=== PATIENT | male | born 1990 | race Two or more races ===

== ENCOUNTER 2022-01-02 14:18 | Emergency (ER) | payer MEDICAID, SELFPAY ==
--- NOTE | ~2022-01-02 | XR_ITS ---
EXAMINATION: XR SHOULDER, RIGHT CLINICAL INFORMATION: Fall COMPARISON: None TECHNIQUE: Three views of the right shoulder. FINDINGS: There is a minimally displaced humeral greater tuberosity fracture. No other fracture is seen. Joint spaces are normal. Soft tissues are normal. XR/XR shoulder RT min 2V IMPRESSION: Greater tuberosity fracture.
[2022-01-02 15:40] VITALS: BP 166/104; PULSE 111; RESP 18; TEMP 36.8; O2SAT 95; BMI 32.3
--- NOTE | 2022-01-02 15:52 | ED_ITS ---
HPI - Fall General Chief Complaint: Fall Stated Complaint: dislocated shoulder Time Seen by Provider: 01/02/22 15:52 Source: patient Mode of arrival: ambulatory Limitations: no limitations History of Present Illness HPI Narrative: Patient is a 31 year old male presenting to the emergency department today with right shoulder pain. Patient states that he is a daily drinker and last night, he tripped and fell, landing on his right shoulder. Patient states that he was drunk when the incident happened but he did not hit his head or have any loss of consciousness with the incident. Patient describes the pain as dull, constant, non-radiating, and a 4/10. Patient denies any dizziness, lightheadedness, abdominal pain, nausea, vomiting, fever, chills, blurry vision, double vision, loss of vision, chest pain, difficulty breathing, shortness of breath, back pain, night sweats, pain with urination, increased urinary frequency, increased urinary urgency, blood in his urine or stool, syncope or a near syncopal episode, bowel incontinence, bladder incontinence, bowel retention, bladder retention, or any other complaints at this time. MD complaint: fall Onset (ago): day(s) (1) Fall from: standing Fall witnessed: no Place fall occurred: home Loss of consciousness: none Prolonged down time: no Symptoms prior to fall: none Context: tripped/slipped and alcohol use Location of injury: other (right shoulder) Severity: mild Severity scale (1-10): 4 Quality: dull Associated symptoms (after fall): denies Related Data Allergies Allergy/AdvReac Type Severity Reaction Status Date / Time No Known Allergies Allergy Verified 01/02/22 15:39 Review of Systems Constitutional: Constitutional: Reports no additional constitutional complaints, Denies chills, Denies fever(s) and Denies night sweats Eyes: Eyes: Reports no additional eye complaints, Denies blurry vision, Denies change in vision, Denies diplopia, Denies eye discharge, Denies loss of vision and Denies eye pain ENT: Denies dizziness Cardiovascular: Cardiovascular: Reports no additional cardiovascular complaints, Denies chest pain, Denies lightheadedness, Denies Loss of Consciousness and Denies dyspnea Respiratory: Respiratory: Reports no additional respiratory complaints and Denies dyspnea Gastrointestinal: Gastrointestinal: Reports no additional gastrointestinal complaints, Denies abdominal pain, Denies melena, Denies hematochezia, Denies change in bowel habits and Denies change in stool character Genitourinary: Genitourinary: Reports no additional male genitourinary complaints, Denies hematuria, Denies oliguria, Denies difficulty urinating, Denies dysuria, Denies urinary frequency, Denies urinary hesitancy, Denies urinary incontinence and Denies urinary urgency Musculoskeletal: Musculoskeletal: Reports no additional musculoskeletal complaints, Denies numbness and Denies tingling Comments: right shoulder pain Neurologic: Denies dizziness, Denies loss of vision, Denies numbness and Denies tingling Psychiatric: Psychiatric: Reports no additional psychiatric complaints Endocrine: Endocrine: Reports no additional endocrine complaints Hematologic/Lymphatic: Hematologic/Lymphatic: Reports no additional hematologic/lymphatic complaints Allergic/Immunologic: Allergic/Immunologic: Reports no additional allergic/immunologic complaints PMFSH Past Medical History Attestation statement: The following information was validated with the patient. Source: old records reviewed Social History Social History Advance Directives: No Advance Directives Information Provided: No Physical Exam Vital Signs: Vital Signs: Last Vital Signs Temp 98.3 F 01/02/22 15:40 Pulse 111 H 01/02/22 15:40 Resp 18 01/02/22 15:40 BP 166/104 H 01/02/22 15:40 Pulse Ox 95 01/02/22 15:40 BMI result Body Mass Index 32.3 Const: General: cooperative, no acute distress, alert and awake Nutritional Appearance: well nourished Orientation/consciousness: patient oriented x3 Limitations: no limitations HENMT: Head: Yes normal to inspection and Yes atraumatic Ears: hearing grossly normal bilaterally and external ears normal General nose exam: Normal external nose present, no nasal discharge noted and no epistaxis Face and sinus: Yes normal facial exam, No abrasion and No laceration Mouth: Normal oral and palatal mucosa present, no drooling and no muffled voice Eyes: General: appearance normal, both eyes and all related structures Periorbital: periorbital findings normal Eyelids: Yes eyelids normal Conjunctivae: conjunctivae normal Pupils: Equal, round and reactive pupils present EOM: EOMs intact bilaterally Neck: Neck: Yes normal visual inspection, Yes full ROM and Yes no lymphadenopathy Chest: Chest palpation & inspection: normal inspection of the chest Resp: Effort & Inspection: normal respiratory effort and able to speak in complete sentences Auscultation: clear to auscultation bilaterally Cardio: Rate: regular rate Rhythm: regular rhythm GI: Inspection: Yes normal to inspection Neuro: General: patient oriented x3 and moves all extremities Cranial nerves: Yes Equal, round and reactive pupils present Cognition (Neuro): normal cognition Motor exam (neuro): 5/5 motor strength present throughout Sensory Exam: Normal double simultaneous stimulation for sensation Coordination: [id number] test normal Extrem: Other: tenderness to palpation of the right upper humerus General: Yes normal to inspection, Yes full ROM and Yes capillary refill normal Psych: Appearance: grossly normal Mental Status: mental status grossly normal Affect: normal affect Attitude: cooperative Thought process: Normal thought process present Thought content: Normal thought content present Insight: Good insight present (Psych) Procedures Orthopedic Splinting/Casting Injury #1: Side: right Upper Extremity Injury Location: shoulder Upper Extremity Immobilizer: sling/shoulder immobilizer MDM - Fall MDM Narrative Medical decision making narrative: Patient is a 31 year old male presenting to the emergency department today with right shoulder pain. Patient's physical exam showed tenderness to palpation of the right upper arm but was otherwise unremarkable. Patient's PMS and ROM was intact to the right upper extremity. Patient's right shoulder x-ray showed an acute greater tuberosity fracture of the right humerus. I explained my physical exam findings as well as all test results to the patient. I answered all questions asked by the patient. I spoke to Amira Key the orthopedic PA, who agreed that the patient should be placed in a sling and discharged for out patient follow up. Additionally, patient was given 2mg of Ativan, PO while in the department today. He had expressed that he normally doesn't go this long without alcohol and was starting to feel a bit shakey. This was consistent with his elevated HR. Patient declined wanting any help/resources/alcohol treatment. Patient was placed in a sling, without incident. Patient's PMS was intact prior to and after sling placement. I stressed the importance of the patient taking his medication as prescribed. I stressed the importance of the patient following up with his primary care provider and an orthopedic provider. I stressed the importance of the patient returning to the emergency department immediately if his symptoms were to worsen or if he were to develop any dizziness, shortness of breath, difficulty breathing, chest pain, blurry vision, loss of vision, nausea, vomiting, abdominal pain, fever, chills, back pain, or any other complaints. Patient verbalized agreement and understanding with this treatment plan and discharge. Differential Diagnosis Differential diagnosis: Likely dislocation and fracture Medical Records Attestation: I reviewed the patient's medical records. Lab Data Attestation: I reviewed the patient's lab results. Imaging Data Right shoulder x-ray: Attestation: I personally reviewed and interpreted this imaging study as follows: Radiologist's impression: EXAMINATION: XR SHOULDER, RIGHT CLINICAL INFORMATION: Fall? COMPARISON: None? TECHNIQUE: Three views of the right shoulder. FINDINGS: There is a minimally displaced humeral greater tuberosity fracture. No other fracture is seen. Joint spaces are normal. Soft tissues are normal. XR/XR shoulder RT min 2V IMPRESSION: Greater tuberosity fracture. Dictated By: Cecile Carrizales MD Signed By: Electronically signed by Cecile Carrizales MD 01/02/22 1547 Discharge Plan Discharge Clinical Impression: Fracture of humerus, Alcohol abuse Patient Disposition: Home, Self-Care Instructions: Arm Fracture in Adults (ED), How to Use a Sling (ED) Additional Instructions: Call to schedule a follow up appointment with an Orthopedic provider. Follow up with your primary care provider. Return to the emergency department immediately if your symptoms worsen or if you develop any dizziness, shortness of breath, difficulty breathing, chest pain, blurry vision, loss of vision, nausea, vomiting, abdominal pain, fever, chills, back pain, or any other complaints. Referrals: Geronimo Phelps MD [Physician] - 2 days [facility] [Primary Care Provider] - 2 days Interventions: ED Discharge Assessment Last Done: 01/02/22 16:28 Discharge Date/Time: 01/02/22 16:29 Print Language: Thai
[2022-01-02] MEDS: LORazepam 1 MG TABLET 2 MG PO (16:00)
== END 2022-01-02 16:29 | disposition home or self-care (01) ==
PROVIDERS: Emergency Provider Emergency Medicine
DX: S42.251A Displaced fracture of greater tuberosity of right humerus, initial encounter for closed fracture (principal); W01.10XA Fall on same level from slipping, tripping and stumbling with subsequent striking against unspecified object, initial encounter; F10.10 Alcohol abuse, uncomplicated; Y90.9 Presence of alcohol in blood, level not specified; Y93.9 Activity, unspecified; Y92.019 Unspecified place in single-family (private) house as the place of occurrence of the external cause; Y99.9 Unspecified external cause status
CPT/HCPCS: 73030; 99283; 99284

== ENCOUNTER → 2022-01-12 08:30 | Outpatient (BNVA) | payer MEDICAID, SELFPAY | PROVIDERS: Visit Provider Physician Assistant | DX: S42.251D Displaced fracture of greater tuberosity of right humerus, subsequent encounter for fracture with routine healing (principal) | CPT/HCPCS: 99202 ==

== ENCOUNTER 2022-02-15 08:59 | Outpatient (REF) | payer MEDICAID, SELFPAY ==
--- NOTE | ~2022-02-15 | XR_ITS ---
EXAMINATION: XR SHOULDER, RIGHT CLINICAL INFORMATION: Right shoulder pain COMPARISON: 01/02/2022 TECHNIQUE: Three views of the right shoulder. FINDINGS: There is redemonstration of a fracture of the right humeral greater tuberosity. Mild displacement of the fragment. This is similar to prior. No additional fractures. The glenohumeral joint is aligned. The joint space is maintained. The acromioclavicular joint is intact. XR/XR shoulder RT min 2V IMPRESSION: Similar appearance of the fracture at the right humeral greater tuberosity.
== END 2022-02-15 09:00 | disposition home or self-care (01) ==
LOC: HO.HOSX 08:59
PROVIDERS: Visit Provider Physician Assistant
DX: S42.253D Displaced fracture of greater tuberosity of unspecified humerus, subsequent encounter for fracture with routine healing (principal)
CPT/HCPCS: 73030; 99212

== ENCOUNTER 2022-03-29 07:28 | Outpatient (REF) | payer MEDICAID, SELFPAY ==
--- NOTE | ~2022-03-29 | XR_ITS ---
EXAMINATION: XR SHOULDER, RIGHT CLINICAL INFORMATION: Pain in the right shoulder COMPARISON: 02/15/2022 TECHNIQUE: Three views of the right shoulder. FINDINGS: Redemonstration of the fracture at the humeral greater tuberosity. Persistent fragmentation although there is less of an ossific gap when compared to prior. The glenohumeral joint is well aligned. The acromioclavicular joint is intact. The visualized lung is clear. The visualized ribs are intact. XR/XR shoulder RT min 2V IMPRESSION: Redemonstration of the greater tuberosity fracture with decreased ossific gap.
== END 2022-03-29 07:29 | disposition home or self-care (01) ==
LOC: HO.HOSX 07:28
PROVIDERS: Visit Provider Physician Assistant
DX: M25.511 Pain in right shoulder (principal)
CPT/HCPCS: 73030

== ENCOUNTER 2022-05-30 07:47 | Outpatient (REF) | payer MEDICAID, SELFPAY | END 2022-05-30 07:48 | disposition home or self-care (01) | LOC: HO.HOSX 07:47 | PROVIDERS: Visit Provider Physician Assistant | DX: Z13.89 Encounter for screening for other disorder (principal) ==

== ENCOUNTER 2023-03-24 14:13 | Emergency (ER) | payer MEDICAID, SELFPAY ==
--- NOTE | ~2023-03-24 | XR_ITS ---
EXAMINATION: XR FOOT, RIGHT CLINICAL INFORMATION: Glass laceration to dorsal surface of foot COMPARISON: None available. TECHNIQUE: AP, lateral, and oblique views of the right foot. FINDINGS: There is soft tissue swelling overlying the forefoot and midfoot. Overlying bandage material is noted. I do not appreciate any radiopaque foreign body or soft tissue gas. No acute bony abnormality. XR/XR foot RT 2V IMPRESSION: Soft tissue swelling with overlying bandage material. No radiopaque foreign body or soft tissue gas.
[2023-03-24 14:21] VITALS: BP 161/100; PULSE 93; RESP 18; TEMP 36.8; O2SAT 100; BMI 33.6
--- NOTE | 2023-03-24 14:42 | ED.WOUNDLAC ---
HPI - Wound/Laceration General Chief Complaint: Wound/Laceration Stated Complaint: R foot lac Time Seen by Provider: 03/24/23 14:29 Source: patient, RN notes reviewed and old records reviewed Mode of arrival: ambulatory History of Present Illness HPI narrative: 32-year-old male with no significant past medical history presenting to the ED complaining of laceration to right foot S/P cutting on glass around 04:00AM. Admits broke a glass vase, then was sitting on carpet, slid foot and was cut on glass that was in carpet. Denies suspected foreign body. Tetanus unknown/out of date. Denies numbness, tingling, injury to other area. Onset (ago): hour(s) Related Data Previous Rx's Medication Instructions Recorded acetaminophen 500 mg tablet 500 mg PO Q6H PRN fever or pain 03/24/23 (Tylenol Extra Strength) #14 tabs bacitracin 500 unit/gram topical 1 appl topical BID #30 grams 03/24/23 ointment naproxen 500 mg tablet 500 mg PO BID PRN pain 10 days #20 03/24/23 tabs Allergies Allergy/AdvReac Type Severity Reaction Status Date / Time No Known Allergies Allergy Verified 03/24/23 14:21 Review of Systems Review of Systems: Constitutional: No Fever, No Chills ENT/Mouth: No Ear Pain, No Nasal Congestion, No sore throat, No Rhinorrhea, No Swallowing Difficulty Cardiovascular: No Chest Pain, No SOB Respiratory: No Cough Gastrointestinal: No Nausea, No Vomiting, No Diarrhea, No Constipation, No Abdominal pain Genitourinary: No Dysuria, No Urinary Frequency, No Flank Pain Musculoskeletal: No joint pain, No Myalgias, No Joint Swelling Skin: +Skin Lesions, No rash Neuro: No Weakness Yes all other systems are reviewed and are negative Constitutional: Constitutional: Reports as per [facility] Past Medical History Attestation statement: The following information was validated with the patient. Source: old records reviewed Social History Social History Advance Directives: No Advance Directives Information Provided: No Current occupational status: employed Current occupation: [employer] Physical Exam Vital Signs: Vital Signs: Last Vital Signs Temp 98.3 F 03/24/23 14:21 Pulse 93 03/24/23 14:21 Resp 18 03/24/23 14:21 BP 161/100 H 03/24/23 14:21 Pulse Ox 100 03/24/23 14:21 O2 Del Method Room Air 03/24/23 14:21 BMI result Body Mass Index 33.6 Const: General: cooperative, healthy appearing and no acute distress Orientation/consciousness: patient oriented x3 Limitations: no limitations HEENT: Head: Yes normal to inspection and Yes atraumatic Ears: hearing grossly normal bilaterally General nose exam: Normal external nose present Face and sinus: Yes normal facial exam Eyes: General: appearance normal, both eyes and all related structures EOM: EOMs intact bilaterally Neck: Neck: Yes normal visual inspection and Yes no meningeal signs Resp: Effort & Inspection: normal respiratory effort and no respiratory distress Cardio: Rate: regular rate Peripheral pulses: popliteal pulses present Skin: Other: +3.5 cm superficial laceration noted to volar lateral aspect of right foot. Bleeding controlled. Underlying structures intact. NV intact. No surrounding erythema or ecchymosis Rashes: no rashes Neuro: General: patient oriented x3, tone normal and no meningeal signs Gait exam (Neuro): Normal gait present Extrem: General: Yes normal to inspection Course Course Course Narrative: XR foot RT 2V IMPRESSION: Soft tissue swelling with overlying bandage material. No radiopaque foreign body or soft tissue gas. ? Results discussed with patient including worrisome signs and symptoms and strict return precautions, and when to return to the emergency department. They verbalized understanding and feel safe for discharge at this time. Medications Administered Discontinued Medications Generic Name Dose Route Start Last Admin Trade Name Freq PRN Reason Stop Dose Admin Diphtheria/Tetanus/Acell Pertussis 0.5 ml 03/24/23 14:55 03/24/23 15:00 Diphth,Pertus(Acell),Tet Adult 0.5 Ml Syringe IM 03/24/23 14:56 0.5 ml .ONCE ONE Administration Lidocaine HCl 5 ml 03/24/23 14:55 03/24/23 15:00 Lidocaine Hcl 1 % Mpf 5 Ml Vial INFILTRATI 03/24/23 14:56 5 ml ONCE ONE Administration Medical Decision Making Medical Decision Making MDM Narrative: 32-year-old male with no significant past medical history presenting to the ED complaining of laceration to right foot S/P cutting on glass around 04:00AM. On exam vital signs stable, NAD, nontoxic appearing, physical exam as above with 3.5 cm superficial laceration noted to top of right foot lateral aspect. Underlying structures intact. No surrounding cellulitis/drainage. Neurovascularly intact Plan: X-ray to rule out foreign body, update tetanus, repair wound Please refer to course for remaining clinical decision making, interpretation of labs/imaging results, and discussions with consultants and/or family members. Differential Diagnosis Differential Diagnoses: The differential diagnosis associated with the presentation includes As above Radiology Impression Discussion of test interpretation with radiology: I have reviewed the radiologist's reading. External Record Review External record reviewed: Inpatient record, Office record, Outpatient record, Prior outpatient labs, Prior outpatient radiology, Primary care record and Outside ED record Tests considered The following testing was considered but not selected: As above Procedures Laceration Laceration 1: Site: lower extremity Side (If applicable): right Size (cm): 3.5 Description: linear Depth: simple, single layer Local Anesthetic: lidocaine 1% Amount of anesthesia used (mL): 3 Pre-repair: wound explored and irrigated extensively Skin layer closed with: nylon Size (cm): 4-0 Technique: simple, interrupted Discharge Plan Discharge Clinical Impression: Foot laceration Patient Disposition: Home, Self-Care Instructions: Laceration (DC) Additional Instructions: Your wounds were repaired today in the emergency department. Keep dry and clean. You need to return to any emergency department, urgent care, or your PCPs office in 7-10 days for suture removal Apply bacitracin and or Neosporin daily Once sutures are removed apply anti scar cream like Mederma If area begins look infected, is red, there is drainage, streaking, or you have fever please return to the emergency department Prescriptions: New bacitracin 500 unit/gram ointment 1 appl topical BID Qty: 30 0RF acetaminophen [Tylenol Extra Strength] 500 mg tablet 500 mg PO Q6H PRN (Reason: fever or pain) Qty: 14 0RF naproxen 500 mg tablet 500 mg PO BID PRN (Reason: pain) 10 Days Qty: 20 0RF Referrals: Physician,None [Primary Care Provider] - 1 week (for suture removal) Stand Alone Forms: Work/School Release Interventions: ED Discharge Assessment Last Done: 03/24/23 15:58 Discharge Date/Time: 03/24/23 15:58
[2023-03-24] MEDS: Lidocaine HCl 1 % MPF 5 ML VIAL INFILTRATI (15:00)
[2023-03-24] MEDS: Diphth,Pertus(ACell),Tet Adult 0.5 ML SYRINGE IM (15:00)
--- NOTE | 2023-03-24 15:01 | PC.NURSE ---
pt medicated per DEC, carlous updated in l deltoid
--- NOTE | 2023-03-24 15:53 | PC.NURSE ---
APPLIED BACITRACIN TO DORSAL ASPECT OF FOOT AT SUTURE SITE, FOLLOWED BY NONSTICK DRESSING KERLIX AND TAQPE, WELL TOLERATED BY PT WHO STS HIS FOOT IS STILL NUMB FROM PROCEDURE, CSM IN TACT
== END 2023-03-24 15:58 | disposition home or self-care (01) ==
PROVIDERS: Emergency Provider Internal Medicine
DX: S91.311A Laceration without foreign body, right foot, initial encounter (principal); S90.811A Abrasion, right foot, initial encounter; W25.XXXA Contact with sharp glass, initial encounter; Y93.9 Activity, unspecified; Y92.9 Unspecified place or not applicable; Y99.9 Unspecified external cause status; Z23 Encounter for immunization
CPT/HCPCS: 73620; 90471; 90715; 99282; 99284

== ENCOUNTER 2023-12-26 17:53 | Emergency (ER) | payer MEDICAID, SELFPAY ==
--- NOTE | ~2023-12-26 | XR_ITS ---
EXAMINATION: XR CLAVICLE, LEFT CLINICAL INFORMATION: Fall. Pain. COMPARISON: None available. TECHNIQUE: 2 radiographs of the left clavicle. FINDINGS: The clavicle is intact. The bones and soft tissues are normal. No fracture. Acromioclavicular joint alignment is anatomic. XR/XR clavicle LT IMPRESSION: Normal left clavicle.
[2023-12-26 18:28] VITALS: BP 188/113; PULSE 73; RESP 20; TEMP 37.3; O2SAT 99; BMI 32.8
--- NOTE | 2023-12-26 19:36 | ED_ITS ---
HPI - Extremity Problem General Chief complaint: Extremity Injury, Upper Stated complaint: broken L clavicle Time Seen by Provider: 12/26/23 19:35 Source: patient Mode of arrival: ambulatory Limitations: no limitations History of Present Illness HPI Narrative: Patient is a 33-year-old male presenting to the emergency department with complaint bruising and tenderness to left anterior shoulder/clavicle. 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 States he is since developed the bruising and tenderness. Denies any decreased range of motion to left shoulder or arm. Denies any new weakness, numbness, tingling. Denies any difficulty breathing or shortness of breath. MD Complaint: extremity pain Onset (ago): day(s) Pain Consistency: constant Location: left Quality: aching Radiation: none Relieving factors: rest Exacerbating factors: palpation Associated symptoms: denies other symptoms Related Data Previous Rx's Medication Instructions Recorded acetaminophen 500 mg tablet 500 mg PO Q6H PRN fever or pain 03/24/23 (Tylenol Extra Strength) #14 tabs bacitracin 500 unit/gram topical 1 appl topical BID #30 grams 03/24/23 ointment naproxen 500 mg tablet 500 mg PO BID PRN pain 10 days #20 03/24/23 tabs Allergies Allergy/AdvReac Type Severity Reaction Status Date / Time No Known Allergies Allergy Verified 03/24/23 14:21 Review of Systems 2 Review of Systems: As per HPI. Yes all other systems are reviewed and are negative Constitutional: Constitutional: Reports as per HPI [facility] Social History Social History Current occupational status: employed Current occupation: [employer] [place] Physical Exam 2 Vital Signs: Vital Signs: Last Vital Signs Temp 99.2 F 12/26/23 18:28 Pulse 73 12/26/23 18:28 Resp 20 12/26/23 18:28 BP 188/113 H 12/26/23 18:28 Pulse Ox 99 12/26/23 18:28 O2 Del Method Room Air 12/26/23 18:28 BMI result Body Mass Index 32.8 Vital signs have been reviewed and appear to be correct. Blood pressure elevated. Heart rate normal. Respiratory rate normal. Temperature normal. Oxygen saturation normal. Const: General: cooperative, healthy appearing and no acute distress O rientation/consciousness: oriented to person, oriented to place, oriented to time and patient oriented x3 Limitations: no limitations HEENT: Head: Yes normocephalic and Yes atraumatic Ears: external ears normal General nose exam: Normal external nose present Face and sinus: Yes face symmetric Mouth: oropharynx normal and moist mucous membranes Throat: Yes uvula midline Eyes: Pupils: Equal, round and reactive pupils present Neck: Neck: Yes normal visual inspection and Yes supple Resp: Effort & Inspection: normal respiratory effort and able to speak in complete sentences Auscultation: clear to auscultation bilaterally Cardio: Rate: regular rate Rhythm: regular rhythm Heart sounds: S1 normal heart sound present and S2 normal heart sound present GI: Palpation (GI): Soft to palpation and nontender Auscultation: n ormoactive bowel sounds : General: Yes no CVA tenderness Back/Spine/Pelvis: Back: no CVA tenderness Skin: General skin exam: elasticity normal and turgor normal Neuro: General: oriented to person, oriented to place, oriented to time, patient oriented x3, moves all extremities, no focal motor deficits and CN's II- XI intact bilaterally Cranial nerves: Yes Equal, round and reactive pupils present Cognition (Neuro): normal cognition Extrem: General: Yes full ROM, Yes normal exam except as noted, Yes no pedal edema and Yes no calf tenderness Left upper extremity: shoulder/upper arm Details: tenderness Location: of the A-C joint, axillary nerve sensory function normal, normal ROM and ecchymosis shoulder anterior Shoulder/upper arm images: 1. healing ecchymosis, tenderness Psych: Mental Status: mental status grossly normal Affect: normal affect Thought process: Normal thought process present Medical Decision Making Medical Decision Making MDM Narrative: Patient is a 33-year-old male presenting to the emergency department with complaint bruising and tenderness to left anterior shoulder/clavicle. On exam patient is awake, A+Ox3, VS WNL, afebrile, normal neurological exam without focal deficits, physical exam findings as above. Given reported symptoms and physical exam findings, initial differential includes left shoulder/clavicle contusion versus fracture. Do not suspect dislocation. X-ray notable for no acute fracture. My interpretation is in agreement with the radiologist's interpretation. Patient updated on results and all questions answered. Advised patient to apply ice for 10-15 minutes at a time several times daily, Tylenol and ibuprofen for discomfort. Return precautions discussed. Patient verbalized understanding of and agreement with plan. Differential Diagnosis Differential Diagnoses: The differential diagnosis associated with the presentation includes As per MDM. Independent Interpretation I performed an independent interpretation of an: Plain X-Ray Interpretation: No acute fracture left clavicle. Radiology Impression Discussion of test interpretation with radiology: I have reviewed the radiologist's reading. Radiologist Impression: XR/XR clavicle LT IMPRESSION: Normal left clavicle. External Record Review External record reviewed: Inpatient record, Office record and Outpatient record Discharge Plan Discharge Clinical Impression: Contusion of left shoulder Patient Disposition: Home, Self-Care Instructions: Contusion in Adults (ED) Additional Instructions: You were evaluated in the emergency department today for left shoulder pain. Your x-ray did not show any evidence of fracture. You discomfort is likely due to a contusion, also known as a bruise. You can apply ice to the area for 10-15 minutes at time, you can also take 650mg Tylenol or 600mg ibuprofen every 6 hours as needed for discomfort. Return to the emergency department if you develop increasing pain, difficulty breathing, new weakness, numbness, tingling, or any other concerning symptoms. Prescriptions: No Action bacitracin 500 unit/gram ointment 1 appl topical BID Qty: 30 0RF acetaminophen [Tylenol Extra Strength] 500 mg tablet 500 mg PO Q6H PRN (Reason: fever or pain) Qty: 14 0RF naproxen 500 mg tablet 500 mg PO BID PRN (Reason: pain) 10 Days Qty: 20 0RF
--- NOTE | 2023-12-26 19:38 | PC.NURSE ---
pt reassessed by pit provider and is ready for discharge. bruising noted to left upper side of chest and is 2 days old. pt moves all extremities with no s/s of pain.
--- NOTE | 2023-12-26 20:11 | PC.NURSE ---
Multiple call outs to waiting room, pt not present.
== END 2023-12-26 20:11 | disposition home or self-care (01) ==
LOC: HO.ED 19:50
PROVIDERS: Emergency Provider Emergency Medicine
DX: S40.012A Contusion of left shoulder, initial encounter (principal); M25.512 Pain in left shoulder; W01.0XXA Fall on same level from slipping, tripping and stumbling without subsequent striking against object, initial encounter; Y93.9 Activity, unspecified; Y92.9 Unspecified place or not applicable; Y99.8 Other external cause status
CPT/HCPCS: 73000; 99282; 99284

== ENCOUNTER 2025-03-20 12:42 | Emergency (ER) | payer MEDICAID, SELFPAY ==
[2025-03-20 12:48] VITALS: BP 175/107; PULSE 91; RESP 18; TEMP 36.7; O2SAT 98; BMI 30.6
--- NOTE | 2025-03-20 12:50 | ED.GENADULT ---
HPI - General Adult General Chief complaint: Abdominal Pain Stated complaint: abdominal pain, nausea Time Seen by Provider: 03/20/25 14:18 Source: patient, RN notes reviewed and old records reviewed Mode of arrival: ambulatory History of Present Illness ED Provider: Maggy Alanis PA-C HPI narrative: 34-year-old male with no significant past medical history presenting to the ED complaining of lower abdominal discomfort and watery nonbloody or melanotic diarrhea x1 week. Also reports nausea and dry heaving. states grandparents were sick with similar symptoms. Denies fever, chills, suspicious food intake, travel out of the country, dysuria/hematuria Related Data Previous Rx's ?Medication ?Instructions ?Recorded acetaminophen 500 mg tablet 500 mg PO Q6H PRN fever or pain 03/24/23 (Tylenol Extra Strength) #14 tabs bacitracin 500 unit/gram topical 1 appl topical BID #30 grams 03/24/23 ointment naproxen 500 mg tablet 500 mg PO BID PRN pain 10 days #20 03/24/23 tabs Allergies Allergy/AdvReac Type Severity Reaction Status Date / Time No Known Allergies Allergy Verified 03/20/25 12:51 Review of Systems Review of Systems: Yes all other systems are reviewed and are negative Constitutional: Constitutional: Reports as per [facility] Past Medical History Attestation statement: The following information was validated with the patient. Source: old records reviewed Social History Social History Advance Directives: No Advance Directives Information Provided: Yes Current occupational status: employed Current occupation: [employer] Physical Exam ED Vital Signs: Vital Signs - 24 hr 03/20/25 12:48 03/20/25 15:54 Temperature 98.1 F 98.1 F Pulse Rate 91 91 Respiratory Rate 18 18 Blood Pressure 175/107 H 175/107 H Pulse Oximetry 98 98 Oxygen Delivery Method Room Air Room Air BMI result Body Mass Index 30.6 Const General: cooperative, healthy appearing and no acute distress Orientation/consciousness: patient oriented x3 Limitations: no limitations HENMT Head: Yes normal to inspection and Yes atraumatic Ears: hearing grossly normal bilaterally General nose exam: Normal external nose present Face and sinus: Yes normal facial exam Eyes General: appearance normal, both eyes and all related structures EOM: EOMs intact bilaterally Neck Neck: Yes normal visual inspection and Yes no meningeal signs Resp Effort & Inspection: normal respiratory effort and no respiratory distress Cardio Rate: regular rate Heart sounds: S1 normal heart sound present and S2 normal heart sound present GI Inspection: Yes normal to inspection Palpation (GI): Soft to palpation, nontender, no guarding and not rigid General: Yes no CVA tenderness Back/Spine/Pelvis Back: no CVA tenderness Skin Rashes: no rashes Wounds: no wounds Neuro General: patient oriented x3, tone normal and no meningeal signs Cranial nerves: Yes CN's II-XII intact bilaterally Gait exam (Neuro): Normal gait present Extrem General: Yes normal to inspection Course Course Course Narrative: RME performed by Maine Barber PA-C. Patient is a 34 year old assigned male at presenting to the emergency department with diarrhea, nausea, and abdominal pain in the lower abdomen. Detailed physical exam and review of systems are deferred to the paper reel operator. Labs ordered. Patient placed back in the waiting room pending room availability and results. > labs reassuring. -[id number]-- Patient unable to provide urine or stool sample. Reports symptomatic improvement after IV fluids given in the ED. Has tolerated p.o. Requesting discharge Results discussed with patient including worrisome signs and symptoms and strict return precautions, and when to return to the emergency department. They verbalized understanding and feel safe for discharge at this time. Medications Administered Discontinued Medications Generic Name Dose Route Start Last Admin Trade Name Freq PRN Reason Stop Dose Admin Sodium Chloride 1,000 mls @ 999 mls/hr 03/20/25 14:45 03/20/25 14:43 Ns IV 03/20/25 15:45 999 mls/hr .Q1H1M [facility] Administration Medical Decision Making Medical Decision Making [facility] Narrative: 34-year-old male with no significant past medical history presenting to the ED complaining of lower abdominal discomfort and watery nonbloody or melanotic diarrhea x1 week. On exam hypertensive, NAD, nontoxic appearing, abdomen is soft and nontender, no CVAT. Concern for gastroenteritis vs food poisoning vs metabolic abnormality/dehydration. Low suspicion for acute appendicitis / diverticulitis, cholecystitis / lithiasis or pancreatitis. Plan: Labs, UA, stool studies, IVF, p.o. trial, re-evaluate Please refer to course for remaining clinical decision making, interpretation of labs/imaging results, and discussions with consultants and/or family members. Differential Diagnosis Differential Diagnoses: The differential diagnosis associated with the presentation includes As above Admission/Observation Consideration of admission/observation: Escalation of care including admission/observation considered Lab Data MDM Lab Attestation statement: I reviewed the patient's lab results. 03/20/25 13:05 03/20/25 13:05 Labs: Lab Results 03/20/25 Range/Units 13:05 WBC 8.6 (4.8-10.8) X10*3/uL RBC 4.95 (4.60-5.80) X10*6/uL Hgb 14.5 (14.0-18.0) g/dl Hct 43.1 (42.0-52.0) % MCV 87.1 (80.0-98.0) fL MCH 29.3 (27.0-33.0) pg MCHC 33.6 (31.0-36.0) g/dl RDW 13.8 (11.0-16.0) % Plt Count 256 (160-400) X10*3/uL MPV 9.9 (9.4-12.4) fL Immature Gran % (Auto) 0.3 (0.0-0.4) % Neut % (Auto) 65.6 (45-73) % Lymph % (Auto) 22.1 (20-40) % [place] % (Auto) 10.0 (2-11) % Eos % (Auto) 1.3 (0-4) % Baso % (Auto) 0.7 (0-2) % Lymph # (Auto) 1.9 (1.2-4.9) X10*3/uL [place] # (Auto) 0.9 (0.1-1.2) X10*3/uL Eos # (Auto) 0.1 (0.0-0.4) X10*3/uL Baso # (Auto) 0.1 (0.0-0.2) X10*3/uL Abs Immat Gran (auto) 0.03 (0.00-0.03) X10*3/uL Absolute Neuts (auto) 5.7 (2.0-8.3) x10*3/uL Absolute Nucleated RBC 0.000 (0.0-0.012) X10*3/uL Nucleated RBC % (auto) 0.0 (0.0-0.2) /100WBC Sodium 142 (135-145) mmol/L Potassium 4.0 (3.3-5.1) mmol/L Chloride 107 (96-108) mmol/L Carbon Dioxide 25 (22-29) mmol/L Anion Gap 14 (12-20) BUN 10 (9-16) mg/dL Creatinine 0.79 (0.5-1.4) mg/dL Estim Creat Clear Calc 132.2 Estimated GFR > 60 Random Glucose 92 (60-115) mg/dL Calcium 9.6 (8.4-10.2) mg/dL Magnesium 2.0 (1.6-2.6) mg/dL Total Bilirubin 0.7 (0.0-1.0) mg/dL AST 34 (5-37) U/L ALT 31 (0-40) U/L Alkaline Phosphatase 74 (39-117) U/L Total Protein 7.5 (6.5-8.0) g/dL Albumin 4.7 (3.5-5.0) g/dL Lipase 23 (8-78) U/L Influenza Type A (PCR) NEGATIVE (Negative) Influenza Type B (PCR) NEGATIVE (Negative) RSV RNA Qual (PCR) NEGATIVE (Negative) SARS-CoV-2 RNA (RT-PCR) NEGATIVE (Negative) Radiology Impression Discussion of test interpretation with radiology: I have reviewed the radiologist's reading. External Record Review External record reviewed: Inpatient record, Office record, Outpatient record, Prior outpatient labs, Prior outpatient radiology, Primary care record and Outside ED record Tests considered The following testing was considered but not selected: As above Prescription Management I considered prescription management with: Other Chronic Conditions Patient?s care impacted by: Other Social Determinants Patient?s care significantly limited by Social Determinants of Health including: Other Social Determinant of Health Discharge Plan Discharge Clinical Impression: Gastroenteritis Patient Disposition: Home, Self-Care Instructions: Gastroenteritis (DC) Additional Instructions: your blood work is reassuring You are unable to give us urine or stool samples Please have close follow up with your primary care doctor Make sure you are staying hydrated If her symptoms persist or worsen, you develop constant worsening abdominal pain, bloody or black stools return to the ED Prescriptions: No Action bacitracin 500 unit/gram ointment 1 appl topical BID Qty: 30 0RF acetaminophen [Tylenol Extra Strength] 500 mg tablet 500 mg PO Q6H PRN (Reason: fever or pain) Qty: 14 0RF naproxen 500 mg tablet 500 mg PO BID PRN (Reason: pain) 10 Days Qty: 20 0RF Referrals: Brigitte Page MD [Primary Care Provider] - 5 days Stand Alone Forms: Work/School Release Interventions: ED Discharge Assessment Last Done: 03/20/25 15:54 Discharge Date/Time: 03/20/25 15:55 Print Language: Trinid[place]
[2025-03-20 13:13] LABS: Basophils Absolute Auto 0.1 X10*3/uL (0.0-0.2); Basophils Percent Auto 0.7 % (0-2); Eosinophils Absolute Auto 0.1 X10*3/uL (0.0-0.4); Eosinophils Percent Auto 1.3 % (0-4); Hematocrit 43.1 % (42.0-52.0); Hemoglobin 14.5 g/dl (14.0-18.0); Imm Gran Abs Auto 0.03 X10*3/uL (0.00-0.03); Imm Gran Pct Auto 0.3 % (0.0-0.4); Lymphocytes Absolute Auto 1.9 X10*3/uL (1.2-4.9); Lymphocytes Percent Auto 22.1 % (20-40); MANUAL DIFF FLAG NO; Mean Corpuscular HGB Conc 33.6 g/dl (31.0-36.0); Mean Corpuscular Hemoglobin 29.3 pg (27.0-33.0); Mean Corpuscular Volume 87.1 fL (80.0-98.0); Mean Platelet Volume 9.9 fL (9.4-12.4); Monocytes Absolute Auto 0.9 X10*3/uL (0.1-1.2); Neutrophils Absolute Auto 5.7 x10*3/uL (2.0-8.3); Neutrophils Percent Auto 65.6 % (45-73); Platelet Count 256 X10*3/uL (160-400); Red Blood Count 4.95 X10*6/uL (4.60-5.80); Red Cell Distribution Width 13.8 % (11.0-16.0); White Blood Count 8.6 X10*3/uL (4.8-10.8)
[2025-03-20 13:30] LABS: Alanine Aminotransferase 31 U/L (0-40); Albumin Level 4.7 g/dL (3.5-5.0); Alkaline Phosphatase 74 U/L (39-117); Anion Gap 14 (12-20); Aspartate Amino Transferase 34 U/L (5-37); Bilirubin Total 0.7 mg/dL (0.0-1.0); Blood Urea Nitrogen 10 mg/dL (9-16); Calcium 9.6 mg/dL (8.4-10.2); Carbon Dioxide 25 mmol/L (22-29); Chloride 107 mmol/L (96-108); Creatinine Clr Calc Pharmacy 132.2; Estimated Glomerular Filt Rate > 60; Glucose Random 92 mg/dL (60-115); Sodium 142 mmol/L (135-145); Total Protein 7.5 g/dL (6.5-8.0)
[2025-03-20 13:54] LABS: Influenza A PCR NEGATIVE (Negative); Influenza B PCR NEGATIVE (Negative); Resp Syncy Virus RNA Qual PCR NEGATIVE (Negative); SARS COV2 PCR INHOUSE NEGATIVE (Negative)
[2025-03-20] MEDS: 0.9 % Sodium Chloride 1,000 ML 999 ML IV (14:43)
[2025-03-20 14:49] LABS: Lipase 23 U/L (8-78)
[2025-03-20 15:54] VITALS: BP 175/107; PULSE 91; RESP 18; TEMP 36.7; O2SAT 98
== END 2025-03-20 15:55 | disposition home or self-care (01) ==
PROVIDERS: Physician Assistant; Physician Assistant Medical; Emergency Provider Emergency Medicine; PCP Student in an Organized Health Care Education/Training Program
DX: K52.9 Noninfective gastroenteritis and colitis, unspecified (principal); R10.30 Lower abdominal pain, unspecified; Z03.818 Encounter for observation for suspected exposure to other biological agents ruled out
CPT/HCPCS: 0241U; 80053; 83690; 83735; 85025; 99283; 99284